=== PATIENT | male | born 1990 | race Caucasian/White ===

== ENCOUNTER 2017-10-13 15:48 | Emergency (ER) | payer BC, SELFPAY ==
--- NOTE | 2017-10-13 15:56 | XR_ITS ---
XR foot RT min 3V HISTORY: Posttraumatic pain ITS.REASON: INJURY ORDERING PHYSICIAN: Martha Packer PATIENT AGE: 27 years COMPARISON: None FINDINGS: No fracture or dislocation. No lytic or blastic change. There is normal mineralization.. The joint spaces are well-preserved. No significant degenerative/arthritic changes. No erosive changes evident. IMPRESSION: Negative, no acute finding
--- NOTE | 2017-10-13 15:56 | XR_ITS ---
XR ankle RT min 3V HISTORY: Posttraumatic pain ITS.REASON: INJURY ORDERING PHYSICIAN: Martha Packer PATIENT AGE: 27 years COMPARISON: None FINDINGS: No fracture or dislocation. No lytic or blastic change. There is normal mineralization.. The joint spaces are well-preserved. No significant degenerative/arthritic changes. No erosive changes evident. IMPRESSION: Negative ankle, no acute finding
[2017-10-13 15:59] VITALS: BP 137/90; PULSE 57; RESP 20; TEMP 36.8; O2SAT 98; BMI 24.7
--- NOTE | 2017-10-13 16:06 | PC.NURSE ---
1606- PT TRANSPORTED TO [facility] BY WHEELCHAIR WITH WARD NURSE
--- NOTE | 2017-10-13 16:28 | HMH.EDUTC ---
[facility] – [place] Disposition Clinical Impression: Right ankle sprain Qualifiers: Encounter type: initial encounter Involved ligament of ankle: other ligament Qualified Code(s): S93.491A - Sprain of other ligament of right ankle, initial encounter Disposition: Home, Self-Care Condition on Discharge: Good Instructions: How to Use Crutches, DI for Ankle Sprain, How To Perform RICE (Rest, Ice, Compress, Elevate), How to Apply an Rodney Wrap Additional Instructions: * weight bearing as tolerated but if painful, do not bear weight. * Rest * ice w/ a cold pack or frozen bag of vegetables 15-20 mins several times a day but no more than once a hour. Do this for up to 3 days. * Rodney wrap and air splint for support and swelling unless in shower. Be sure not too tight but not too loose either * Elevate with ankle above your heart as much as possible to help reduce swelling and therefore, pain * Ibuprofen every 6 hours as needed for pain and inflammation. If you need something more, you can take tylenol every 4 hours as needed as long as your primary care provider has told you it is ok to take both. * Contrast baths: Starting 3 days AFTER your injury. Soak ankle in warm water for 30 seconds, then in cold water for 30 seconds. Switch back and forth for 5 minutes. Repeat every 2 hours. Helps reduce swelling and promotes healing. Referrals: Rabia Wayne DPM [Physician] - (Follow up IMMEDIATELY for new or worsening symptoms OR no noticeable improvement over the next 3-5 days) Forms: Work/School Release Time of Disposition: 16:34 Medical Decision Making - Bunny Inquiry Pt receiving controlled substance: No Vital Signs: 10/13/17 15:59 Temperature 98.3 F Temperature Source Temporal Artery Scan Pulse Rate [Brachial] 57 L Respiratory Rate 20 Blood Pressure [Right Arm] 137/90 Blood Pressure Mean [Right Arm] 105 Blood Pressure Position [Right Arm] Sitting 02 Sat by Pulse Oximetry 98 Oxygen Delivery Method Room Air - Radiology Data #1 Image(s): Ankle, Foot/Toes Image Reviewed: Yes I reviewed the patient's radiology image w/the ED provider Preliminary Findings: Normal/NAD Rvwd w/ ALONZO Abraham MD [facility] [place] HPI - General Stated complaint: AO [id number] Injured R ankle Time Seen by Provider: 10/13/17 16:00 Mode of Arrival: Ambulatory Source of Information: Patient Limitations: No Limitations Description of Symptoms (Recalled from Triage Doc. by RN): STEPPED IN A HOLE ON THURSDAY WHILE PLAYING PAINT BALL AND TWISTED HIS RT ANKLE. PT ARRIVED WITH RODNEY WRAP AND WALKING WITH A CANE. BRUISING AND SWELLING ARE NOTED TO THE LATERAL ANKLE AREA. HEENT Symptoms (Recalled from RN notes): No Resp Symptoms (Recalled from RN notes): No Skin Symptoms (Recalled from RN notes): No MS Symptoms (Recalled from RN notes): Yes Functional Status (Recalled from RN notes): NA - History of Present Illness Provider Complaint: c/o right ankle and foot pain, swelling, bruising. Was playing [employer] on Thursday, 2 days ago, when he fell into a hole. Reports this caused him to twist his ankle and fall. Despite using a cane, old rodney wrap and taking ibuprofen, still having pain, swelling and bruising. No PCP to follow up with. - Related Data Allergies Allergy/AdvReac Type Severity Reaction Status Date / Time Cefaclor Allergy Unknown Uncoded 05/12/17 14:50 ERYTHROMYCIN Allergy Unknown I-RASH Uncoded 05/12/17 14:50 From Penicillin V Potassium Allergy Unknown Uncoded 05/12/17 14:50 Sulfamethoxazole Allergy Unknown Uncoded 05/12/17 14:50 UNKNOWN ANTIBIOTIC Allergy Unknown I-RASH Uncoded 05/12/17 14:50 - Worker's Comp Is this a Worker's Comp case?: No [facility] History I have reviewed the patient's past medical history: Yes (denies pMHx) Medical History: Denies:: Diabetes Mellitus Type 2, Hypertension Other Surgeries: Yes: No Previous Surgery - Social History Smoking Status: Current every day smoker Tobacco Type: cigarettes Alcohol Intake: never - Psychiatric History Expres
--- NOTE | 2017-10-13 16:32 | ED_ITS ---
[facility] – [place] Disposition Clinical Impression: Right ankle sprain Qualifiers: Encounter type: initial encounter Involved ligament of ankle: other ligament Qualified Code(s): S93.491A - Sprain of other ligament of right ankle, initial encounter Disposition: Home, Self-Care Condition on Discharge: Good Instructions: How to Use Crutches, DI for Ankle Sprain, How To Perform RICE ( Rest, Ice, Compress, Elevate), How to Apply an Rodney Wrap Additional Instructions: * weight bearing as tolerated but if painful, do not bear weight. * Rest * ice w/ a cold pack or frozen bag of vegetables 15-20 mins several times a day but no more than once a hour. Do this for up to 3 days. * Rodney wrap and air splint for support and swelling unless in shower. Be sure not too tight but not too loose either * Elevate with ankle above your heart as much as possible to help reduce swelling and therefore, pain * Ibuprofen every 6 hours as needed for pain and inflammation. If you need something more, you can take tylenol every 4 hours as needed as long as your primary care provider has told you it is ok to take both. * Contrast baths: Starting 3 days AFTER your injury. Soak ankle in warm water for 30 seconds, then in cold water for 30 seconds. Switch back and forth for 5 minutes. Repeat every 2 hours. Helps reduce swelling and promotes healing. Referrals: Rabia Wayne DPM [Physician] - (Follow up IMMEDIATELY for new or worsening symptoms OR no noticeable improvement over the next 3-5 days) Forms: Work/School Release Time of Disposition: 16:34 Medical Decision Making - Bunny Inquiry Pt receiving controlled substance: No Vital Signs: 10/13/17 15:59 Temperature 98.3 F Temperature Source Temporal Artery Scan Pulse Rate [Brachial] 57 L Respiratory Rate 20 Blood Pressure [Right Arm] 137/90 Blood Pressure Mean [Right Arm] 105 Blood Pressure Position [Right Arm] Sitting 02 Sat by Pulse Oximetry 98 Oxygen Delivery Method Room Air - Radiology Data #1 Image(s): Ankle, Foot/Toes Image Reviewed: Yes I reviewed the patient's radiology image w/the ED provider Preliminary Findings: Normal/NAD Rvwd w/ ALONZO Abraham MD [facility] [place] HPI - General Stated complaint: AO [id number] Injured R ankle Time Seen by Provider: 10/13/17 16:00 Mode of Arrival: Ambulatory Source of Information: Patient Limitations: No Limitations Description of Symptoms (Recalled from Triage Doc. by RN): STEPPED IN A HOLE ON THURSDAY WHILE PLAYING PAINT BALL AND TWISTED HIS RT ANKLE. PT ARRIVED WITH RODNEY WRAP AND WALKING WITH A CANE. BRUISING AND SWELLING ARE NOTED TO THE LATERAL ANKLE AREA. HEENT Symptoms (Recalled from RN notes): No Resp Symptoms (Recalled from RN notes): No Skin Symptoms (Recalled from RN notes): No MS Symptoms (Recalled from RN notes): Yes Functional Status (Recalled from RN notes): NA - History of Present Illness Provider Complaint: c/o right ankle and foot pain, swelling, bruising. Was playing [employer] on Thursday, 2 days ago, when he fell into a hole. Reports this caused him to twist his ankle and fall. Despite using a cane, old rodney wrap and taking ibuprofen, still having pain, swelling and bruising. No PCP to follow up with. - Related Data Allergies Allergy/AdvReac Type Severity Reaction Status Date / Time Cefaclor Allergy Unknown Uncoded 05/12/17 14:50 ERYTHROMYCIN Allergy Unknown I-RASH Uncoded 05/12/17 14:50 From Penicillin V Potassium Allergy Unknown Uncoded 05/12/17 14:50 Sulfamethoxaz
[2017-10-13 16:37] VITALS: BP 137/90; PULSE 57; RESP 20; TEMP 36.8; O2SAT 98
== END 2017-10-13 16:38 | disposition home or self-care (01) ==
PROVIDERS: Emergency Provider Nurse Practitioner Family; Family Provider Internal Medicine
DX: S93.491A Sprain of other ligament of right ankle, initial encounter (principal); X50.1XXA Overexertion from prolonged static or awkward postures, initial encounter; F17.210 Nicotine dependence, cigarettes, uncomplicated
CPT/HCPCS: 29515; 73610; 73630; 99203

== ENCOUNTER → 2018-09-06 09:44 | Outpatient (CLI) | payer BC, SELFPAY ==
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
== END ==
PROVIDERS: PCP Internal Medicine; Visit Provider Internal Medicine
DX: M25.562 Pain in left knee (principal)
CPT/HCPCS: 73562

== ENCOUNTER → 2018-09-15 12:52 | Outpatient (CLI) | payer BC, SELFPAY ==
--- NOTE | 2018-09-15 13:02 | XR_ITS ---
XR knee LT 4V HISTORY: Left knee pain ITS.REASON: ap, lateral, sunrise, enamorado weight bearing ORDERING PHYSICIAN: Aurora Melvin MD PATIENT AGE: 28 years COMPARISON: None FINDINGS: No fracture or dislocation. No lytic or blastic change. Normal mineralization. No significant arthritic changes evident. No other significant findings IMPRESSION: Negative Knee
== END ==
PROVIDERS: PCP Internal Medicine; Visit Provider Orthopaedic Surgery
DX: M25.562 Pain in left knee (principal)
CPT/HCPCS: 73564

== ENCOUNTER 2018-11-10 12:57 | Emergency (ER) | payer BC, SELFPAY ==
[2018-11-10 13:01] VITALS: BP 124/82; PULSE 78; RESP 16; TEMP 36.6; O2SAT 97; BMI 27.5
[2018-11-10 13:15] VITALS: BP 124/82; PULSE 78; RESP 16; TEMP 36.6; O2SAT 97
== END 2018-11-10 13:16 | disposition home or self-care (01) ==
PROVIDERS: Emergency Provider Nurse Practitioner; PCP Internal Medicine
DX: S81.811D Laceration without foreign body, right lower leg, subsequent encounter (principal)

== ENCOUNTER 2018-11-13 19:15 | Emergency (ER) | payer BC, SELFPAY ==
[2018-11-13 19:32] VITALS: BP 124/82; PULSE 81; RESP 18; TEMP 36.2; O2SAT 98; BMI 23.1
[2018-11-13 19:34] VITALS: BP 124/82; PULSE 81; RESP 18; TEMP 36.2; O2SAT 92
== END 2018-11-13 19:36 | disposition home or self-care (01) ==
LOC: UTC 19:19
PROVIDERS: Emergency Provider Nurse Practitioner Family; PCP Internal Medicine
DX: S81.811D Laceration without foreign body, right lower leg, subsequent encounter (principal)
CPT/HCPCS: 12001

== ENCOUNTER 2020-12-31 08:39 | Emergency (ER) | payer OTHER, SELFPAY ==
[2020-12-31 08:39] VITALS: BP 139/81; PULSE 60; RESP 18; TEMP 36.9; O2SAT 98; BMI 32.5
--- NOTE | 2020-12-31 08:47 | HMH.EDUPEXT ---
ED Disposition Clinical Impression: Laceration of finger Qualifiers: Encounter type: initial encounter Finger: index finger Damage to nail status: without damage Foreign body presence: without foreign body Laterality: right Qualified Code(s): S61.210A - Laceration without foreign body of right index finger without damage to nail, initial encounter Disposition: Home, Self-Care Condition on Discharge: Good Instructions: How to Care for a Laceration After Repair, DI for Laceration Repair -- Finger Additional Instructions: Keep the area dry and clean. You may wash it briefly and then pat dry. Return to the emergency department if you have any problems with the wound or if you feel worse in any way. Follow-up with your primary care doctor in 3 days to have the wound checked. Follow-up again in approximately 10 to 14 days to have the sutures removed. Limited use of the right hand until cleared to do so by your doctor. You may use ibuprofen or Tylenol for the pain. Referrals: Bryant Wheatley [Primary Care Provider] - 3 days (Wound check in 3 days, suture removal in 10-14 days) - Critical Care Critical Care Time: No Attestation: On , the high probability of a clinically significant, sudden or life threatening deterioration of the following system(s) required my full and direct attention, intervention and personal management. The time I documented below is in addition to time spent performing reported procedures but includes the following listed in this critical care notation. Medical Decision Making - Medical Records Medical records reviewed: Yes: I reviewed the patient's medical records. - Bunny Inquiry Pt receiving controlled substance: No Vital Signs: 12/31/20 08:39 12/31/20 09:09 Temperature 98.4 F Temperature Source Oral Pulse Rate 60 Pulse Rate [Left Radial] 60 Respiratory Rate 18 18 Blood Pressure 125/72 Blood Pressure [Right Arm] 139/81 Blood Pressure Mean [Right Arm] 100 Blood Pressure Source [Right Arm] Automatic Cuff Blood Pressure Position [Right Arm] Sitting 02 Sat by Pulse Oximetry 98 98 Oxygen Delivery Method Room Air Orders (Tests/Meds): ED MEDICATIONS Discontinued Medications Generic Name Dose Route Start Last Admin Trade Name Freq PRN Reason Stop Dose Admin Tetanus/Reduced Diphtheria/Acell Pertussis 0.5 ml 12/31/20 08:50 Tet/Diphth/Pert-Adult 0.5ml Syringe IM 12/31/20 08:51 .ONCE ONE ORDERS Category Date Time Status Hand XR right minimum 3 views [XR hand RT min 3V] Stat Exams 12/31/20 08:50 Taken - Radiology Data #1 Image(s): Hand Image Reviewed: Yes I reviewed the patient's radiology image Preliminary Findings: Normal/NAD Upper Extremity HPI - General Chief Complaint: Extremity Injury, Upper Stated Complaint: WC cut fingers Rt hand Time Seen by Provider: 12/31/20 08:47 Mode of Arrival: Ambulatory - History of Present Illness HPI narrative: The patient presents to the emergency department after having sustained a laceration to the dorsum of his right index and middle fingers. This happened at work. The patient denies any other injuries. He states that he has normal range of motion of both fingers. He is unsure about his last tetanus immunization. MD complaint: injury to: right, finger - Related Data Previous Rx's Medication Instructions Recorded buspirone 10 mg tablet 10 mg PO BID #60 tab 07/12/19 Allergies Allergy/AdvReac Type Severity Reaction Status Date / Time Cefaclor Allergy Unknown Uncoded 05/02/19 08:55 ERYTHROMYCIN Allergy Unknown I-RASH Uncoded 05/02/19 08:55 From Penicillin V Potassium Allergy Unknown Uncoded 05/02/19 08:55 Sulfamethoxazole Allergy Unknown Uncoded 05/02/19 08:55 UNKNOWN ANTIBIOTIC Allergy Unknown I-RASH Uncoded 05/02/19 08:55 [facility] History - Hepatitis A Screen Drug use history?: No Attestation statement:: This patient has been screened for Hepatitis A risk factors. I have revi
--- NOTE | 2020-12-31 08:50 | XR_ITS ---
PROCEDURE: XR HAND RT MIN 3V CLINICAL INDICATION: injury Pain the COMPARISON: No exams were available for comparison FINDINGS: No fracture or dislocation. No lytic or blastic change. There is normal mineralization. The joint spaces are well-preserved. No significant degenerative/arthritic changes. No erosive changes evident. Other findings:None. IMPRESSION: No acute findings. Dictated by: Clem Llanes MD 12/31/2020 09:50 Clem Llanes MD in [place] 12/31/2020 09:50
[2020-12-31 09:09] VITALS: BP 125/72; PULSE 60; RESP 18; O2SAT 98
[2020-12-31 10:01] VITALS: BP 126/74; PULSE 69; RESP 16; TEMP 36.9; O2SAT 98
== END 2020-12-31 10:03 | disposition home or self-care (01) ==
PROVIDERS: Emergency Provider Emergency Medicine; PCP Internal Medicine
DX: S61.210A Laceration without foreign body of right index finger without damage to nail, initial encounter (principal); S61.202A Unspecified open wound of right middle finger without damage to nail, initial encounter; W26.9XXA Contact with unspecified sharp object(s), initial encounter; Y92.69 Other specified industrial and construction area as the place of occurrence of the external cause; Y99.0 Civilian activity done for income or pay; F17.210 Nicotine dependence, cigarettes, uncomplicated; Z23 Encounter for immunization
CPT/HCPCS: 12002; 73130; 90715; 99282

== ENCOUNTER 2021-01-20 16:31 | Emergency (ER) | payer BC, SELFPAY ==
[2021-01-20 18:56] VITALS: BP 135/90; PULSE 56; RESP 16; TEMP 36.6; O2SAT 99; BMI 32.5
[2021-01-20 19:01] VITALS: BP 135/90; PULSE 56; RESP 16; TEMP 36.7
--- NOTE | 2021-01-20 19:19 | HMH.EDUTC ---
[facility] – [place] Disposition Clinical Impression: Encounter for laboratory testing for COVID-19 virus Disposition: Home, Self-Care Condition on Discharge: Good Instructions: Preventing the Spread of Coronavirus Discharge Instructions Additional Instructions: You have been tested for COVID19. Please isolate as if you are positive until test results received. Referrals: Bryant Wheatley [Primary Care Provider] - Time of Disposition: 19:26 Medical Decision Making - Bunny Inquiry Pt receiving controlled substance: No Vital Signs: 01/20/21 18:56 01/20/21 19:01 Temperature 98 F 98.1 F Temperature Source Oral Pulse Rate 56 L Pulse Rate [Left] 56 L Respiratory Rate 16 16 Blood Pressure 135/90 Blood Pressure [Right Arm] 135/90 Blood Pressure Mean [Right Arm] 105 02 Sat by Pulse Oximetry 99 Orders (Tests/Meds): ORDERS Category Date Time Status Covid-19 Nasal PCR ([facility]) Routine Lab 01/20/21 19:00 Ordered [facility] [place] HPI - General Stated complaint: covid test Time Seen by Provider: 01/20/21 19:19 Mode of Arrival: Ambulatory Source of Information: Patient Limitations: No Limitations Description of Symptoms (Recalled from Triage Doc. by RN): covid swab for work. HEENT Symptoms (Recalled from RN notes): No Resp Symptoms (Recalled from RN notes): No Skin Symptoms (Recalled from RN notes): No MS Symptoms (Recalled from RN notes): No Functional Status (Recalled from RN notes): na - History of Present Illness Provider Complaint: Needs COVID19 test to return to work. 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 He was not directly exposed but they are requesting a negative test. He is asymptomatic. Relieving factors: none Exacerbating factors: none Associated symptoms: denies other symptoms Treatments prior to arrival: none - Related Data Previous Rx's Medication Instructions Recorded buspirone 10 mg tablet 10 mg PO BID #60 tab 07/12/19 Allergies Allergy/AdvReac Type Severity Reaction Status Date / Time Cefaclor Allergy Unknown Uncoded 05/02/19 08:55 ERYTHROMYCIN Allergy Unknown I-RASH Uncoded 05/02/19 08:55 From Penicillin V Potassium Allergy Unknown Uncoded 05/02/19 08:55 Sulfamethoxazole Allergy Unknown Uncoded 05/02/19 08:55 UNKNOWN ANTIBIOTIC Allergy Unknown I-RASH Uncoded 05/02/19 08:55 - Worker's Comp Is this a Worker's Comp case?: No [facility] History - Hepatitis A Screen Drug use history?: No High risk sexual behaviors?: No History of sexually transmitted infection?: No Currently employed?: No Childcare worker?: No Do you have indoor plumbing?: Yes Do you have electricity?: Yes Attestation statement:: This patient has been screened for Hepatitis A risk factors. I have reviewed the patient's past medical history: Yes Medical History: Denies:: Diabetes Mellitus Type 2, Hypertension Other Surgeries: Yes: No Previous Surgery - Social History Smoking Status: Light tobacco smoker Tobacco Type: cigarettes # Packs/Day (cigarettes): 1 Alcohol Intake: never Alcohol Intake Frequency:: holidays/special occasions only Substance Use Type: marijuana (he does smoke; usually once per day) Occupational Status: employed Comment: -he does not smoke cannabis when he is really anxious. -it does increase his racing thoughts. -will increase paranoia. -no synthetics Family Hx:: No significant family history ROS Obtained: Yes All systems reviewed & no additional complaints Physical Exam - General General appearance: alert, in no apparent distress - Head Head exam: normocephalic - Eye Eye exam: Present: PERRL - ENT ENT exam: Present: normal oropharynx, TM's normal bilaterally - Neck Neck exam: Present: normal inspection - Chest Chest inspection: Present: normal inspection, symmetric chest wall rise - Respiratory Respiratory exam: Present: normal lung sounds bilaterally - Cardiovascular Cardiovascular exam: Present: regular rate, normal rhythm - Neurological Ex
== END 2021-01-20 19:58 | disposition home or self-care (01) ==
PROVIDERS: Emergency Provider Physician Assistant; PCP Internal Medicine
DX: Z20.822 Contact with and (suspected) exposure to COVID-19 (principal)
CPT/HCPCS: 99202; G0463; U0003

== ENCOUNTER → 2021-04-29 16:45 | Outpatient (CLI) | payer BC, SELFPAY | PROVIDERS: PCP Internal Medicine; Visit Provider Nurse Practitioner | DX: Z20.822 Contact with and (suspected) exposure to COVID-19 (principal) | CPT/HCPCS: C9803; U0003; U0005 ==

== ENCOUNTER 2021-11-14 16:56 | Emergency (ER) | payer BC, SELFPAY ==
[2021-11-14 17:22] VITALS: BP 128/67; PULSE 70; RESP 18; TEMP 37.1; O2SAT 95; BMI 33.1
--- NOTE | 2021-11-14 17:29 | HMH.EDUTC ---
[facility] [place] [place] Disposition Clinical Impression: COVID-19, Viral syndrome Disposition: Home, Self-Care Condition on Discharge: Good Instructions: DI for COVID-19 (Suspected or Confirmed ), Preventing the Spread of Coronavirus Discharge Instructions Additional Instructions: Drink plenty of fluids. Take tylenol or ibuprofen for pain or fever. Take the medications as directed if needed for symptoms. Follow up with your regular doctor. GO TO THE ER FOR ANY WORSENING SYMPTOMS The cough medication (promethazine dm) will make you drowsy, so don't drive or operate heavy machinery after taking it. Prescriptions: Promethazine/Dextromethorphan [Promethazine-Dm Syrup] 5 ml PO Q6HP PRN #240 ml PRN Reason: Cough Transmission Status: Received by [facility] Ibuprofen [Ibuprofen 800mg Tablet] 800 mg PO Q8HP PRN #30 tab PRN Reason: Moderate Pain Transmission Status: Received by [facility] Ondansetron [Zofran 4mg ODT] 4 mg PO Q8HP PRN #20 tab PRN Reason: Nausea Transmission Status: Received by [facility] Referrals: Bryant Wheatley MD [Primary Care Provider] - Time of Disposition: 17:57 Medical Decision Making - Medical Records Medical records reviewed: No: I reviewed the patient's medical records. - Bunny Inquiry Pt receiving controlled substance: No Vital Signs: 11/14/21 17:22 11/14/21 17:57 Temperature 98.7 F 98.7 F Temperature Source Oral Pulse Rate 70 Pulse Rate [Left] 70 Respiratory Rate 18 18 Blood Pressure 128/67 Blood Pressure [Right Arm] 128/67 Blood Pressure Mean [Right Arm] 87 02 Sat by Pulse Oximetry 95 Orders (Tests/Meds): ORDERS Category Date Time Status Covid-19 Nasal PCR ([facility]) Routine Lab 11/14/21 17:16 Received [facility] [place] [place] HPI - General Stated complaint: covid test,body ackes Time Seen by Provider: 11/14/21 17:29 Description of Symptoms (Recalled from Triage Doc. by RN): patient comes in for covid test. patient took an at home covid test and it was positive today HEENT Symptoms (Recalled from RN notes): Yes Resp Symptoms (Recalled from RN notes): Yes Skin Symptoms (Recalled from RN notes): No MS Symptoms (Recalled from RN notes): No Functional Status (Recalled from RN notes): wnl - History of Present Illness Provider Complaint: He states that he tested positive on a covid test at home, but he needs a pcr test for his job. - Related Data Previous Rx's Medication Instructions Recorded buspirone 10 mg tablet 10 mg PO BID #60 tab 07/12/19 Ibuprofen [Ibuprofen 800mg 800 mg PO Q8HP PRN #30 tab 11/14/21 Tablet] Ondansetron [Zofran 4mg ODT] 4 mg PO Q8HP PRN #20 tab 11/14/21 Promethazine/Dextromethorphan 5 ml PO Q6HP PRN #240 ml 11/14/21 [Promethazine-Dm Syrup] Allergies Allergy/AdvReac Type Severity Reaction Status Date / Time Cefaclor Allergy Unknown Uncoded 05/02/19 08:55 ERYTHROMYCIN Allergy Unknown I-RASH Uncoded 05/02/19 08:55 From Penicillin V Potassium Allergy Unknown Uncoded 05/02/19 08:55 Sulfamethoxazole Allergy Unknown Uncoded 05/02/19 08:55 UNKNOWN ANTIBIOTIC Allergy Unknown I-RASH Uncoded 05/02/19 08:55 - Worker's Comp Is this a Worker's Comp case?: No [facility] History - Hepatitis A Screen Attestation statement:: This patient has been screened for Hepatitis A risk factors. I have reviewed the patient's past medical history: Yes Medical History: Denies:: Diabetes Mellitus Type 2, Hypertension Other Surgeries: Yes: No Previous Surgery - Social History Smoking Status: Light tobacco smoker Tobacco Type: cigarettes # Packs/Day (cigarettes): 1 Alcohol Intake: never Alcohol Intake Frequency:: holidays/special occasions only Substance Use Type: marijuana (he does smoke; usually once per day) Occupational Status: employed Comment: -he does not smoke cannabis when he is really anxious. -it does increase his racing thoughts. -will increase paranoia. -no synthetics Family Hx:: No significant
[2021-11-14 17:57] VITALS: BP 128/67; PULSE 70; RESP 18; TEMP 37.1
== END 2021-11-14 18:01 | disposition home or self-care (01) ==
PROVIDERS: Emergency Provider Nurse Practitioner Family; PCP Internal Medicine
DX: U07.1 COVID-19 (principal); R52 Pain, unspecified; Z88.1 Allergy status to other antibiotic agents; Z88.2 Allergy status to sulfonamides
CPT/HCPCS: 99212; C9803; G0463; U0003; U0005

== ENCOUNTER 2024-04-20 14:39 | Outpatient (CLI) | payer BC, SELFPAY ==
--- NOTE | 2024-04-20 14:53 | ECG_ITS ---
APPROVED REPORT Exam: Resting ECG HR:52 bpm ECG Measurements Heart Rate 52 AXES MN 140 P 20 QRSd 122 QRS 74 QT 422 T 52 QTc 403 Conclusion SINUS BRADYCARDIA WITH SINUS ARRHYTHMIA MODERATE INTRAVENTRICULAR CONDUCTION DELAY [110+ ms QRS DURATION] BORDERLINE ECG UNCONFIRMED REPORT Electronically signed by : Hal Morrell MD 04/22/2024 14:12:44
== END 2024-04-20 23:59 | disposition home or self-care (01) ==
PROVIDERS: PCP Internal Medicine; Visit Provider Internal Medicine
DX: R00.2 Palpitations (principal); R07.9 Chest pain, unspecified
CPT/HCPCS: 93005; 93225; 93227

== ENCOUNTER 2024-05-02 08:54 | Outpatient (CLI) | payer BC, SELFPAY ==
--- NOTE | 2024-05-02 08:59 | CA_ITS ---
APPROVED REPORT EXAM: Comprehensive 2D, Doppler, and color-flow Echocardiogram [employer]: Gisselle Harvey RVT Ht: 6 ft 2 in Wt: 299lbs BSA: 2.58 BP: 116/68 mmHg Indications: PALPS,CP 2D Dimensions LA Volume 41.20 mL LA Volume Index 15.97 mL/m2 (M/F) 16-34 M-Mode Dimensions RVDd 3.37 cm (0.9-2.6) LA Diam 3.56 cm (1.9-4.0) LVDd 4.98 cm (3.5-5.7) LVDs 2.77 cm (3.5-5.7) IVSd 1.03 cm (0.6-1.1) PWd 0.92 cm (0.6-1.1) EF (Teich) 75.40% FS 44.40% EDV (Teich) 117.10 mL TAPSE 2.26 (<1.7) ESV (Teich) 28.80 mL LV Diastology E Decel Time 150 (160-240 msec) E/A Ratio 0.5 Aortic Valve HARRY Index 1.36 cm2/m2 AoV Peak Juan Francisco. 120.0 (50-130 cm/s) AO Peak GR. 5.80 mmHg AO Mean GR. 3.30 (<5 mmHg) AO VTI 28.3 (18-25 cm) HARRY (VTI) 3.60 (2.5-4.5 cm2) Mitral Valve MV E Max Juan Francisco. 48.0 (40-130 cm/s) MV A Velocity 97.0 (40-130 cm/s) E/A Ratio 0.50 MV PHT 44.0 ms Pulmonary Valve PV Peak Velocity 73.0 (50-150 cm/s) Tricuspid Valve TR P. Velocity 201.00 cm/s RAP Estimate 10.00 mmHg RVSP 26.10 mmHg Left Ventricle The left ventricle is normal size. The left ventricular systolic function is normal. The left ventricular ejection fraction is within the normal range. There is normal left ventricular wall thickness. There is normal LV segmental wall motion. The left ventricular diastolic function is normal. LVEF is 50-55%. Right Ventricle The right ventricle is normal size. The right ventricular systolic function is normal. Atria The left atrium size is normal. The right atrium size is normal. There is no Doppler evidence of interatrial shunt. Aortic Valve The aortic valve is normal in structure. There is no aortic valvular stenosis. No aortic regurgitation is present. Mitral Valve The mitral valve is normal in structure. No evidence of mitral valve stenosis. Trace mitral regurgitation. Tricuspid Valve Tricuspid valve is grossly normal in structure and function. Trace tricuspid regurgitation. There is insufficient jet to estimate RVSP. Pulmonic Valve The pulmonary valve is normal in structure. Trace pulmonic regurgitation. Great Vessels The aortic root is normal in size. The ascending aorta is normal in size. IVC is normal in size and collapses >50% with inspiration. He Pericardium There is no pericardial effusion. Other Information Study Quality: Adequate Conclusion Normal biventricular systolic function. No significant valvular stenosis or regurgitation. Electronically signed by : Magi Cortez MD 05/08/2024 20:35:02
== END 2024-05-02 23:59 | disposition home or self-care (01) ==
LOC: RT 08:55
PROVIDERS: PCP Internal Medicine; Visit Provider Internal Medicine
DX: R07.9 Chest pain, unspecified (principal); R00.2 Palpitations
CPT/HCPCS: 93306

== ENCOUNTER 2025-03-03 23:37 | Emergency (ER) | payer BC, SELFPAY ==
[2025-03-03 23:43] VITALS: BP 142/86; PULSE 78; RESP 16; TEMP 37.2; O2SAT 94; BMI 38.7
--- NOTE | 2025-03-03 23:56 | PC.NURSE ---
pt given drink for PO challenge.
[2025-03-04 00:43] VITALS: BP 128/68; PULSE 88; RESP 19; TEMP 36.4; O2SAT 96
--- NOTE | 2025-03-04 02:05 | [facility].EDGENADL ---
Discharge Plan Disposition Patient Disposition: Home, Self-Care Condition: Good Prescriptions Prescriptions: No Action oseltamivir [Tamiflu] 75 mg capsule 75 mg PO BID 5 Days Qty: 10 0RF ondansetron 4 mg tablet,disintegrating 4 mg PO Q8H PRN (Reason: nausea and vomiting) Qty: 20 1RF Referrals Follow up/Referrals: Bryant Wheatley MD [Primary Care Provider, Medical] - See instructions Activity Restrictions/Add. Instructions Additional Instructions/Restrictions: You were evaluated in the ER and are believed to be appropriate for discharge at this time. Monitor your symptoms closely. Make an appointment with your primary care doctor for reevaluation on Thursday. Return to the ER with any new, worsening, or otherwise concerning symptoms as discussed. Clinical Impressions Clinical Impression: Choking due to food (regurgitated) Print Language Print Language: [place]uran Discharge ED Provider: Marie Rosario Adult HPI General Chief complaint: Sore Throat Stated complaint: Aspirated Time Seen by Provider: 03/03/25 23:41 Mode of Arrival: Ambulatory Source of Information: Patient Description of Symptoms (Recalled from ER Triage Doc. by RN): pt presents to the ed for evaluation of possible food bolus. Pt reports eating a manwhich sandwhich approx 2300 when the food became lodged, family reports pt continuously vomiting from the time it happened until arriving to the ED. Pt states that he is able to swallow his saliva, denies any trouble breathing, reports It just feels uncomfortable History of Present Illness HPI narrative: 34-year-old male presents to the ER for concerns of possible food bolus. Patient reports shortly prior to arrival he was eating a man which is sandwich when food became lodged and he threw up. He states he had multiple episodes of emesis. Nonbloody, nonbilious. He states he is now able to swallow his saliva, no difficulty breathing. No vomiting at this time. He states he is having some discomfort in the tonsils but demonstrates to the area under the tongue. He states he is progressively feeling better and thinks he is probably okay but just wanted to make sure . No other complaints or concerns. Denies chest pain or difficulty breathing, denies swallowing or sensation of anything still stuck in the throat. Related Data Previous Rx's ?Medication ?Instructions ?Recorded ondansetron 4 mg disintegrating 4 mg PO Q8H PRN nausea and 07/19/24 tablet vomiting #20 tabs oseltamivir 75 mg capsule (Tamiflu) 75 mg PO BID 5 days #10 caps 07/19/24 Allergies Allergy/AdvReac Type Severity Reaction Status Date / Time Cefaclor Allergy Unknown Uncoded 05/02/19 08:55 ERYTHROMYCIN Allergy Unknown I-RASH Uncoded 05/02/19 08:55 From Penicillin V Potassium Allergy Unknown Uncoded 05/02/19 08:55 Sulfamethoxazole Allergy Unknown Uncoded 05/02/19 08:55 UNKNOWN ANTIBIOTIC Allergy Unknown I-RASH Uncoded 05/02/19 08:55 PFSH [facility] Disclaimer: The information contained in this section may have been updated after the patient was seen, as this information can be updated by other users. Social History Smoking Status: Current every day smoker tobacco type: cigarettes packs per day: 1 alcohol intake: never substance use type: marijuana (he does smoke; usually once per day) current occupational status: employed Travel in the last 8 weeks?: None number of children: 1 Have you lived/traveled outside [place] in past 30 days?: No Contact w/someone who lives/traveled outside [place] past 30 days?: No Exposure to someone with infectious disease in past 14 days?: No Do you have a fever (greater than 100.4 F or 38 C)?: No Have you tested positive for COVID-19?: No Exposed to someone with COVID-19 in past 14 days?: No Do you have a sore throat?: No Do you have a cough?: No Do you have any weakness?: No Do you have any diarrhea?: No Are you experiencing any unusual bleeding?: No Do you have any muscle aches/pain?: No Do you have any abdominal pain?: No Are you experiencing loss of taste or smell?: No Other Medical History Have you received the Flu Vaccine for this season: No Have you received the Pneumonia Vaccine: No ROS Obtained: Yes Systems reviewed as appropriate & no additional complaints except as documented Per HPI Physical Exam General General appearance: alert and in no apparent distress Head Head exam: atraumatic and normocephalic Eye Eye exam: Present PERRL and EOMI ENT ENT exam: Present normal oropharynx (No erythema or mass, no evidence of obstruction) and mucous membranes moist Neck Neck exam: Present normal inspection, full ROM, trachea midline and other (No stridor, no crepitus); Absent tenderness, lymphadenopathy or thyromegaly Chest Chest inspection: Present symmetric chest wall rise and other (No crepitus); Absent tenderness Respiratory Respiratory exam: Present normal lung sounds bilaterally; Absent respiratory distress, wheezes or stridor Cardiovascular Cardiovascular exam: Present regular rate and normal rhythm Abdominal Exam Abdominal exam: Present soft; Absent distention or tenderness Extremities Exam Extremities exam: Present full ROM Neurological Exam Neurological exam: Present alert and oriented X3; Absent motor sensory deficit Psychiatric Psychiatric exam: Present normal affect and normal mood Skin Skin exam: Present warm and dry Medical Decision Making Medical Records Medical records reviewed: Yes I reviewed the patient's medical records. Screening: Per USPSTF and CDC recommendations, given the prevalence of disease in our region, it is our hospital?s policy to screen for HIV and viral Hepatitis for all patients aged 18 and over and those with ongoing risk factors. Bunny Inquiry Pt receiving controlled substance: No Vital Signs: 03/03/25 23:43 03/04/25 00:43 Temperature 98.9 F 97.6 F Temperature Source Oral Pulse Rate 88 Pulse Rate [Radial] 78 Respiratory Rate 16 19 Blood Pressure 128/68 Blood Pressure [Right Arm] 142/86 H Blood Pressure Mean [Right Arm] 104 Blood Pressure Position [Right Arm] Sitting 02 Sat by Pulse Oximetry 94 L Oxygen Delivery Method Room Air Room Air Medical Decision Narrative: In summary, this 34-year-old male presents to the emergency department today with concerns of food getting lodged and throwing up. On initial evaluation patient is hemodynamically stable, afebrile, airway patent, tolerating secretions, normal phonation, no mass appreciated in the neck, no tenderness of the neck, all structures symmetric and midline, no crepitus, full range of motion, no stridor, no chest wall tenderness or crepitus, cardiopulmonary exam benign, abdominal exam benign. Patient has normal vitals saturating 96 to 98% on room air with no adventitious sounds. Differential diagnosis includes but is not limited to food bolus, regurgitation, I considered the possibility of aspiration but patient reports he did not have significant coughing or difficulty breathing and is not having any sensation of that at this time. Patient is actively tolerating secretions and has a benign, reassuring exam with good vitals. I do not believe he requires labs or imaging at this time. I did consider the possibility of him having an esophageal tear but he had no hematemesis and has no crepitus or pain. I am going to let him attempt oral intake in the ER of both food and drink and continue to monitor his vitals and reassess. Patient drank and ate food. He is able to swallow it and states he actually feels better after eating and drinking. His discomfort in the back of his throat is improving. He has no crepitus, airway is still patent, lungs clear bilaterally and saturating in the upper 90s on room air. He is appropriate for discharge at this time and comfortable with this plan. He states he just wanted to make sure he was okay and thinks he is. He would like to go home which I believe is reasonable. Patient was given instructions on symptomatic monitoring and management, follow up instructions, and return precautions for the emergency department. Patient indicated understanding and was discharged in stable condition. Critical Care Critical Care Time Critical Care Time: No
== END 2025-03-04 00:47 | disposition home or self-care (01) ==
PROVIDERS: Emergency Provider Emergency Medicine; PCP Internal Medicine
DX: T17.320A Food in larynx causing asphyxiation, initial encounter (principal); W44.F3XA Food entering into or through a natural orifice, initial encounter
CPT/HCPCS: 99282